=== PATIENT | male | born 1935 | race Caucasian/White ===

== ENCOUNTER 2017-01-23 20:55 | Inpatient (IN) | payer MEDICARE ==
[~2017-01-23] VITALS: Ht 193 cm; Wt 86.2 kg
[2017-01-23 21:33] LABS: BASOPHILS 0.2 % (0-2); EOSINOPHILS 0.3 % (0-7); HEMATOCRIT 39.4 % (42.0-54.0); HEMOGLOBIN 12.6 g/dL (13.5-17.5); IMMATURE GRANULOCYTES 0.2 % (0-5); LYMPHOCYTES 7.4 % (15-50); MCV 90.6 fL (80.0-100.0); MEAN PLATELET VOLUME 9.6 fL (7.4-10.4); MONOCYTES 9.2 % (2-11); NEUTROPHILS 82.7 % (40-80); PLATELET COUNT 300 10x3/uL (130-400); RBC 4.35 10x6/uL (4.20-6.10); RDW 13.1 % (11.5-14.5)
[2017-01-23 21:44] LABS: POTASSIUM - SERUM 4.4 mmol/L (3.5-5.1)
[2017-01-23 21:58] LABS: ALBUMIN 2.5 g/dL (3.4-5.0); ANION GAP 13.3 mmol/L (8-16); BILIRUBIN - TOTAL 0.83 mg/dL (0.2-1.3); CALCIUM 10.7 mg/dL (8.5-10.1); CARBON DIOXIDE 27.1 mmol/L (21.0-32.0); CREATININE - SERUM 1.3 mg/dL (0.6-1.3); PROTEIN - SERUM 7.5 g/dL (6.4-8.2)
[2017-01-23 22:26] LABS: APPEARANCE CLEAR (CLEAR); COLOR YELLOW (YELLOW); SPECIFIC GRAVITY 1.015 (1.005-1.020)
[2017-01-23 22:27] LABS: BACTERIA MODERATE /hpf (NONE SEEN); BILIRUBIN NEGATIVE (NEGATIVE); EPITHELIAL CELLS 0-5 /hpf (0-5); GLUCOSE NEGATIVE (NEGATIVE); KETONE NEGATIVE (NEGATIVE); NITRITE NEGATIVE (NEGATIVE); PROTEIN NEGATIVE (NEGATIVE); UROBILINOGEN NORMAL (NORMAL)
[2017-01-24 00:33] VITALS: BMI 23.1
[2017-01-24 00:49] VITALS: BP 99/62
[2017-01-24 05:33] VITALS: BP 92/59
--- NOTE | 2017-01-24 07:30 | NUR ---
REPORT RECEIVED. RR EVEN AND UNLABORED. PT DENIES NEEDS AT THIS TIME. FLUIDS RUNNING AT 50ML/HR, NO ORDERS FOR FLUIDS, CHANGED TO KVO AT 10MLS/HR FOR INTERMITTENT ABX. WILL CTM.
[2017-01-24 08:52] VITALS: BP 113/53
--- NOTE | 2017-01-24 11:00 | NUR ---
PT C/O OF ACID REFLUX. REPORTS THAT HE TAKES TUMS AT HOME. LEFT CINDY FROM DR. CHO'S OFFICE A MESSAGE. WILL AWAIT CALL BACK.
--- NOTE | 2017-01-24 12:15 | NUR ---
PT STILL VERY AGITATED THAT HE HAS NOT GOT HIS TUMS. I HAVE NOT RECEIVED A CALL BACK. WILL CALL OFFICE AGAIN.
--- NOTE | 2017-01-24 12:20 | NUR ---
SPOKE TO DR. JASSO REGARDING PT REQUEST FOR TUMS. GAVE TELEPHONE ORDER FOR TUMS TIDPRN 1000MG. WILL GIVE AND CTM.
[2017-01-24 12:39] VITALS: BP 117/71
[2017-01-24 13:39] VITALS: BMI 23.1
[2017-01-24 14:22] VITALS: Ht 193 cm; Wt 86.2 kg
[2017-01-24] MEDS ORDERED: MIRALAX17 GM PO (14:30)
[2017-01-24] MEDS ORDERED: VIBRAMYCIN 100100 MG PO (14:30)
--- NOTE | 2017-01-24 14:55 | NUR ---
SCDS ORDERED FOR PT. PT REFUSED SCDS AT THIS TIME.
--- NOTE | 2017-01-24 15:45 | NUR ---
SPOKE TO PTS FAMILY ABOUT PT BEING DISCHARGED. VERBALIZED UNDERSTANDING. REPORTED THEY WILL BE HERE TO [employer] FAMILY MEMBER IN A "LITTLE WHILE."
--- NOTE | 2017-01-24 16:06 | NUR ---
Patient Name: GOPAL LYNN Admission Status: ER Accout number: [id number] Admission Date: 01-23-2017 : 1935 Admission Diagnosis: Attending: SAE CHO Current LOS: 1 Anticipated DC Date: 01-24-2017 Planned Disposition: Home with Home Health Primary Insurance: MEDICARE A & B PLANNED EXTERNAL PROVIDER: [facility] Discharge Planning Comments: * Is the patient Alert and Oriented? Yes 0 * How many steps to enter\exit or inside your home? 3-4 0 * PCP DR. CHO 0 * Pharmacy [facility] 0 * Preadmission Environment Home with Family 0 * ADLs Independent 0 * Equipment Wheelchair 0 * Other Equipment NO MEDICAL EQUIPMENT PROVIDER PREFERENCE 0 * List name and contact numbers for known caregivers / representatives who currently or will assist patient after discharge: INA LYNN, SPOUSE, 0 * Community resources currently utilized None 0 * Please name any agencies selected above. NONE 0 * Additional services required to return to the preadmission environment? No 0 * Can the patient safely return to the preadmission environment? Yes 0 * Has this patient been hospitalized within the prior 30 days at any hospital? No 0 CM MET WITH PT IN ROOM TO DISCUSS DISCHARGE PLANNING AND NEEDS. PT REPORTS LIVING AT HOME INDEPENDENTLY WITH SPOUSE. PT HAS MANUAL WHEELCHAIR AND NO MEDICAL EQUIPMENT PROVIDER PREFERENCE. PT HAS NO OUTSIDE SERVICES ASSISTING IN THE HOME. CM DISCUSSED AVAILABILITY OF HOME HEALTH, REHAB SERVICES AND MEDICAL EQUIPMENT. PT DENIES REHAB NEEDS, REPORTS HE WILL ACCEPT HOME HEALTH, CHOSE [facility], CHOICE SIGNED; PT REPORTS HIS OR DAUGHTER WILL PICK HIM UP FOR DISCHARGE HOME TODAY. CM CALLED [facility], , SPOKE TO RAGHU WHO WILL ACCEPT PT AND ADMIT ON TUESDAY. CM NOTIFIED PT WHO ACCEPTED ARRANGEMENT AND DID NOT WANT CM TO CALL ANOTHER COMPANY. CM FAXED DISCHARGE INFORMATION TO [facility] AT [phone]. Analytical Scientist: Dudley Sears
--- NOTE | 2017-01-24 16:09 | NUR ---
PT DISCHARGED. PT REQUESTED THAT I GIVE D/C INSTRUCTIONS TO HIS FAMILY MEMBER WHEN SHE ARRIVES. IV CATHETER REMOVED WITH CATHTER TIP INTACT. WILL PROVIDE TEACHING TO FAMILY WHEN THEY ARRIVE AND PT GAVE PERMISSION FOR THEM TO SIGN PAPERWORK FOR HIM. WILL AWAIT FAMILY TO ARRIVE.
[2017-01-24 16:27] VITALS: BP 113/75
--- NOTE | 2017-01-24 18:00 | NUR ---
FAMILY HERE TO GET PT. PROVIDED TEACHING, PAPERWORK SIGNED. VERBALIZED UNDERSTANDING. ASSISTED PT TO WHEELCHAIR X2 ASSIST. WENT DOWNSTAIRS WITH PT AND ASSISTED HIM TO CAR X2 ASSIST. FAMILY REPORTS THEY HAVE HELP WAITING AT HOME TO TRANSFER HIM TO HIS HOME WHEELCHAIR. DENIES FURTHER NEEDS. VERBALIZED SATISFACTION WITH CARE.
== END 2017-01-24 18:12 | disposition home health service (06) | DRG 689 ==
LOC: D.ER 20:55 → D.M2 21:38
PROVIDERS: Emergency Medicine; ADMIT Family Medicine
DX: N39.0 Urinary tract infection, site not specified (principal); J18.9 Pneumonia, unspecified organism; K59.00 Constipation, unspecified; F32.9 Major depressive disorder, single episode, unspecified; K21.9 Gastro-esophageal reflux disease without esophagitis; G62.9 Polyneuropathy, unspecified; R63.0 Anorexia

== ENCOUNTER 2017-01-26 09:32 | Inpatient (IN) | payer MEDICARE ==
[~2017-01-26] VITALS: Ht 193 cm; Wt 63.5 kg
[~2017-01-26 09:32] MED LIST: MIRALAX17 GM PO; VIBRAMYCIN 100100 MG PO
[2017-01-26 10:25] LABS: BASOPHILS 0.1 % (0-2); EOSINOPHILS 0 % (0-7); HEMATOCRIT 39.6 % (42.0-54.0); HEMOGLOBIN 13.2 g/dL (13.5-17.5); IMMATURE GRANULOCYTES 0.4 % (0-5); LYMPHOCYTES 4.2 % (15-50); MCH 29.6 pg (26.0-34.0); MCHC 33.3 g/dL (31.0-37.0); MCV 88.8 fL (80.0-100.0); MONOCYTES 5.5 % (2-11); NEUTROPHILS 89.8 % (40-80); RBC 4.46 10x6/uL (4.20-6.10); RDW 13.2 % (11.5-14.5); WBC 19.4 10x3/uL (4.8-10.8)
[2017-01-26 10:30] LABS: PLATELET COUNT 382 10x3/uL (130-400)
[2017-01-26 10:43] LABS: ALBUMIN 2.4 g/dL (3.4-5.0); ALKALINE PHOSPHATASE 86 U/L (46-116); ALT (SGPT) 14 U/L (10-68); CALC OSMOLALITY 300 mosm/kg (275-300); CARBON DIOXIDE 32.1 mmol/L (21.0-32.0); CHLORIDE - SERUM 96 mmol/L (98-107); CREATININE - SERUM 2.3 mg/dL (0.6-1.3); GLUCOSE 147 mg/dL (74-106); POTASSIUM - SERUM 4.4 mmol/L (3.5-5.1); PROTEIN - SERUM 8.4 g/dL (6.4-8.2); SODIUM 136 mmol/L (136-145); UREA NITROGEN 85 mg/dL (7-18); eGFR NON AFRICAN AMERICAN 29 mL/min (90-120)
[2017-01-26 10:50] LABS: CALCIUM 13.9 mg/dL (8.5-10.1)
[2017-01-26 10:50] LABS: APPEARANCE CLEAR (CLEAR); BACTERIA FEW /hpf (NONE SEEN); BILIRUBIN NEGATIVE (NEGATIVE); COLOR YELLOW (YELLOW); EPITHELIAL CELLS 0-5 /hpf (0-5); GLUCOSE NEGATIVE (NEGATIVE); HYALINE CAST 0-5 /lpf (NONE SEEN); KETONE NEGATIVE (NEGATIVE); MUCUS <1+ /lpf (NONE SEEN); NITRITE NEGATIVE (NEGATIVE); PROTEIN TRACE mg/dL (NEGATIVE); RED CELLS - URINE 0-5 /hpf (0-5); UROBILINOGEN NORMAL (NORMAL); WHITE CELLS - URINE 0-5 /hpf (0-5)
[2017-01-26 10:51] LABS: AMORPHOUS SEDIMENT >1+ /lpf (NONE SEEN)
[2017-01-26 11:00] LABS: CREATINE KINASE 44 UL (21-232); MAGNESIUM - SERUM 2.1 mg/dL (1.8-2.4); PHOSPHOROUS 2.4 mg/dL (2.5-4.9); TROPONIN-I < 0.017 ng/mL (0.000-0.060)
[2017-01-26 11:19] LABS: PRO BNP 2078 pg/mL (0-450)
[2017-01-26 14:21] VITALS: BP 132/93; BMI 17.0
--- NOTE | 2017-01-26 14:30 | NUR ---
ASSESSMENT PER FLOW SHEET.PT WITHOUT DISTRESS.CALL LIGHT IN REACH
--- NOTE | 2017-01-26 16:43 | NUR ---
PT SPOUSE CAME IN TO TALK ABOUT PT CONDITION, STATED PT REFUSES TO EAT AT HOME AND STATES THAT FOOD TASTES LIKE CARDBOARD, THE ONLY THING THAT PATIENT EATS IS TUMS. STATED PT BOUGHT A BOTTLE OF 90 THIS PAST WEEKEND AND HAS MAYBE 20 LEFT. PT STATED HE CAME TO ER TO HAVE TUBE PLACED IN HIM TO RECIEVE NUTRIENTS BECAUSE HE DID NOT WANT TO EAT. PT FELL [place] [facility] [place] AROUND November AND THEN FELL AGAIN AT HOME A FEW WEEKS LATER AND HAS SINCE BEEN WHEELCHAIR BOUND. PT STATED HE DOES NOT HAVE PNEUMONIA AND THAT SPOT ON LUNG HAS BEEN THERE FOR YEARS AND HE JUST FORGOT TO TELL DOCTORS. PT DID NOT GO TO HOSPITAL OR SEE A DOCTOR WHEN HE FELL BOTH TIMES. PT HAS BEEN TAKING AZO AT HOME FOR URINARY INFECTION. TUESDAY PT THREW UP WHAT WAS DESCRIBED DARK BROWN COFFEE GROUNDS HAS NOT EATEN SINCE AND WILL NOT EAT. WILL CONTINUE WITH PT CARE PLAN
--- NOTE | 2017-01-26 18:20 | NUR ---
PT DAUGHTER DORCAS JUST CALLED TO GIVE UPDATE ON PT, STATED PT IS NOT TAKING TUMS LIKE MOTHER STAES AND THAT PT IS WANTING TO GET HELP AND GET BETTER BUT IS NOT GETTING THE SUPPORT FROM [facility] THAT IS NEEDED. STATED SHE WANTED TOX SCREENS RUN ON PT TO RULE OUT POISONING, ADVISED PT DAUGHTER THAT SHE NEEDS TO SPEAK WITH PT AND DOCTOR ABOUT THIS. PT STATED SHE IS BUYING ICE CREAM AND ENSURE TO PROMOTE PT EATING, ADVISED DAUGHTER I WILL PUT HER NUMBER IN NOTES IF DOCTOR HAS QUESTIONS AND ALSO THAT PT WILL NEED TO OK HER TALKING TO US ABOUT CONDITION, PT DAUGHTER DORCAS [phone]
[2017-01-26 20:00] VITALS: BP 138/86
--- NOTE | 2017-01-26 20:00 | NUR ---
ASSESSMENT PER FLOWSHEET. IV PATENT LEFT FOREARM OF NS AT 100CC'S/HR SITE CLEAR. SR UP X2 PLACED PATIENT ON A RICHAR MAT WITH ALARMS SET. CALL LIGHT WITHIN REACH. HOLLOWAY TO BEDSIDE DRAINAGE WITH MARY COLORED URINE.
--- NOTE | 2017-01-26 22:00 | NUR ---
RESTING QUIETLY TURNS SELF IN BED. DENIES NEEDS.
[2017-01-27] VITALS: BP 138/82
--- NOTE | 2017-01-27 | NUR ---
EYES CLOSED RESPIRATIONS WITH EASE AND UNLABORED. TURNS SELF AND SETS OFF RICHAR MAT. ALARMS RESET.
--- NOTE | 2017-01-27 03:00 | NUR ---
EYES CLOSED RESPIRATIONS WITH EASE AND UNLABORED.
[2017-01-27 04:00] VITALS: BP 132/88
[2017-01-27 06:16] LABS: HEMATOCRIT 32.3 % (42.0-54.0); HEMOGLOBIN 10.8 g/dL (13.5-17.5); MCH 29.3 pg (26.0-34.0); MCHC 33.4 g/dL (31.0-37.0); MCV 87.8 fL (80.0-100.0); MEAN PLATELET VOLUME 10.4 fL (7.4-10.4); PLATELET COUNT 360 10x3/uL (130-400); RBC 3.68 10x6/uL (4.20-6.10); RDW 13.2 % (11.5-14.5); WBC 23.2 10x3/uL (4.8-10.8)
[2017-01-27 06:42] LABS: ANION GAP 14.2 mmol/L (8-16); CALCIUM 11.6 mg/dL (8.5-10.1); CARBON DIOXIDE 26.9 mmol/L (21.0-32.0); CREATININE - SERUM 1.9 mg/dL (0.6-1.3); POTASSIUM - SERUM 4.1 mmol/L (3.5-5.1)
[2017-01-27 07:06] LABS: EOSINOPHILS 1 % (0-7); LYMPHOCYTES 5 % (15-50); MONOCYTES 7 % (2-11); NEUTROPHILS 84 % (40-80); PLATELET ESTIMATE NORMAL; ROULEAUX OCC
[2017-01-27 07:58] VITALS: BP 128/91
--- NOTE | 2017-01-27 10:04 | NUR ---
Patient Name: GOPAL LYNN Admission Status: ER Accout number: [id number] Admission Date: 01-26-2017 : 1935 Admission Diagnosis: Attending: SAE CHO Current LOS: 1 Anticipated DC Date: 02-01-2017 Planned Disposition: Home with Home Health Primary Insurance: MEDICARE A & B Discharge Planning Comments: CM MET WITH PATIENT AND CALLED (INA)REGARDING D/C NEEDS AND PLANS. STATED SHE WILL DRIVE PATIENT HOME AT DISCHARGE. PATIENT HAD PREVIOUSLY FELL TWICE BEFORE THIS VISIT AND REFUSES TO GET UP AT HOME SINCE PER . PATIENT NEEDS HELP TRANSFERRING, BATHING (REFUSING AT HOME), AND MEDS. PATIENT HAS A CANE, WHEELCHAIR, SHOWER CHAIR, BS COMMODE, AND WALKER AT HOME PER . PATIENTS DAUGHTER WITH HER CHILDREN HAS MOVED IN TO HELP WITH HIS NEEDS. PATIENTS STATED HE IS REFUSING TO DO ANYTHING. PATIENTS PCP IS DR. CHO AND USES [facility]. PATIENT HAD SIGNED WITH [facility] AT LAST VISIT AND THEY STATED THEY WOULD SEE PATIENT ONCE HE IS HOME. CM WILL CONTINUE TO FOLLOW PATIENT WITH D/C NEEDS AND PLANS. PCP DR. CHO [facility] [phone] INA () [phone] Line Assembler: Suni Saxena Is the patient Alert and Oriented? Yes 0 * How many steps to enter\exit or inside your home? RAMP 0 * PCP DR. CHO 0 * Pharmacy [facility] 0 * Preadmission Environment Home with Family 0 * ADLs Partial Dependent 0 * Partial ADLs (Assistance needed) Ambulation Bathing Dressing Medication Management Toileting Transfers 0 * Equipment Bedside Commode Cane Shower Chair Walker Wheelchair 0 * List name and contact numbers for known caregivers / representatives who currently or will assist patient after discharge: INA () [phone] * Community resources currently utilized Home Health 0 * Please name any agencies selected above. [facility] WILL SEE HIM AT DISCHARGE 0 * Additional services required to return to the preadmission environment? Yes 0 * Can the patient safely return to the preadmission environment? Yes 0 * Has this patient been hospitalized within the prior 30 days at any hospital? Yes 0 Grand Total: 0
[2017-01-27 12:11] VITALS: BP 122/70
[2017-01-27 12:35] VITALS: BMI 17.0
--- NOTE | 2017-01-27 13:00 | NUR ---
ATTEMPTED TO GET PT UP TO CHAIR WITH TWO PERSON ASSIST. UNABLE TO SAFELY TRANSFER PT. WILL LET PHYSICAL THERAPY WORK WITH PT.
[2017-01-27 13:43] LABS: BASOPHILS 0.1 % (0-2); EOSINOPHILS 0 % (0-7); HEMOGLOBIN 10.7 g/dL (13.5-17.5); IMMATURE GRANULOCYTES 0.4 % (0-5); LYMPHOCYTES 1.9 % (15-50); MCH 29.3 pg (26.0-34.0); MCHC 32.4 g/dL (31.0-37.0); MCV 90.4 fL (80.0-100.0); MEAN PLATELET VOLUME 10.1 fL (7.4-10.4); MONOCYTES 4.9 % (2-11); NEUTROPHILS 92.7 % (40-80); PLATELET COUNT 356 10x3/uL (130-400); RBC 3.65 10x6/uL (4.20-6.10); RDW 13.5 % (11.5-14.5); WBC 27.1 10x3/uL (4.8-10.8)
[2017-01-27 15:42] VITALS: BP 147/99
--- NOTE | 2017-01-27 17:17 | NUR ---
SCHEDULED MEDICATIONS ADMINISTERED AT THIS TIME WITHOUT DIFFICULTY. RICHAR MAT ALARM ON AND IN USE. CALL LIGHT IN REACH AND DOOR OPEN. WILL CONTINUE WITH PLAN OF CARE.
--- NOTE | 2017-01-27 20:45 | NUR ---
PT REQUEST TO BE REPOSITIONED, ROSE BUCKLEY HELPED READJUST, PT DENIES OTHER NEEDS, CALL LIGHT IN REACH, WILL CONITNUE TO MONITOR
[2017-01-28 04:00] VITALS: BP 142/80
--- NOTE | 2017-01-28 04:30 | NUR ---
PT LYING IN BED AWAKE. PT JUST RECEIVED PAIN PILL FROM BATH HOUSE ATTENDANT. NO OTHER NEEDS. CONTINUE BATH HOUSE ATTENDANT'S PLAN OF CARE.
[2017-01-28 05:39] LABS: BASOPHILS 0 % (0-2); EOSINOPHILS 0 % (0-7); HEMATOCRIT 27.3 % (42.0-54.0); IMMATURE GRANULOCYTES 0.4 % (0-5); LYMPHOCYTES 2.3 % (15-50); MCH 29.1 pg (26.0-34.0); MCV 88.3 fL (80.0-100.0); MEAN PLATELET VOLUME 9.5 fL (7.4-10.4); MONOCYTES 5.6 % (2-11); NEUTROPHILS 91.7 % (40-80); PLATELET COUNT 331 10x3/uL (130-400); RBC 3.09 10x6/uL (4.20-6.10); RDW 13.3 % (11.5-14.5); WBC 25.9 10x3/uL (4.8-10.8)
[2017-01-28 05:56] LABS: % SATURATION 76 % (15-55); IRON 125 ug/dl (35-150); TOTAL IRON BIND CAPACITY 164 ug/dl (260-445)
[2017-01-28 05:57] LABS: UNSAT IRON BIND CAPACITY 39 ug/dl (150-375)
[2017-01-28 06:38] LABS: ANION GAP 13.7 mmol/L (8-16); CALCIUM 11.1 mg/dL (8.5-10.1); CARBON DIOXIDE 26.1 mmol/L (21.0-32.0); CREATININE - SERUM 1.7 mg/dL (0.6-1.3); PHOSPHOROUS 1.8 mg/dL (2.5-4.9); POTASSIUM - SERUM 3.8 mmol/L (3.5-5.1); PRE-ALBUMIN 14.3 mg/dL (18.0-35.7)
--- NOTE | 2017-01-28 08:00 | NUR ---
ASSESSMENT PER FLOW SHEET.PT WITHOUT DISTRESS.DENIES NEEDS AT PRESENT.PT VERY RELUCTANT TO TALK,FLAT AFFECT.FALL PREVENTION IN PLACE WITH RICHAR MAT IN PLACE AND MONITORING.
[2017-01-28 08:10] VITALS: BP 144/91
[2017-01-28 11:44] VITALS: Ht 193 cm; Wt 63.5 kg
--- NOTE | 2017-01-28 11:45 | NUR ---
WANTING UP IN CHAIR,PAGE TO PT.
--- NOTE | 2017-01-28 12:00 | NUR ---
PT SLID OUT OF BED WITHOUT INJURY.PT ASSISTED WITH GETTING PT BACK TO BED. I ASK PT WHY HE HAD TRIED TO GET UP HIMSELF,BUT HE WILL NOT ANSWER. HE IS ANGRY AND STATED EARLIER HE WAS READY TO GO HOME.
--- NOTE | 2017-01-28 12:22 | NUR ---
CALL TO [facility] EMERGENCY CONTACT.MESSAGE LEFT FOR HER TO CALL.
--- NOTE | 2017-01-28 12:32 | NUR ---
CALL TO TO INFORM HIM PT SLID OUT OF BED. VSS 97.9,76,20,131/74.
[2017-01-28 12:53] VITALS: BP 122/84
--- NOTE | 2017-01-28 13:00 | NUR ---
NUTRITION F/U PT WITH GOOD PO INTAKE BREAKFAST. LUNCH TRAY AT BEDSIDE BUT PT NOT EATING. VISIT WITH PT YESTERDAY, ADDED ENSURE TO MEALS. PT HAS BEEN CONSUMING MOST OF ENSURE. WILL CONTINUE TO SUPPLY ENSURE, ENCOURAGE PO INTAKE. RD FOLLOWING
--- NOTE | 2017-01-28 13:47 | NUR ---
BACK FROM XRAY VIA BED.PT WITHOUT DISTRESS,BUT REQUESTING PAIN MEDS
--- NOTE | 2017-01-28 14:53 | NUR ---
RESTING WITHOUT SIGNS OF DISTRESS
[2017-01-28 15:50] VITALS: BP 122/74
[2017-01-28 20:00] VITALS: BP 121/80
[2017-01-29] VITALS: BP 135/90
--- NOTE | 2017-01-29 00:46 | NUR ---
PATIENT PULLED PIV OUT WITH CATH INTACT. NEW 20G PIV STARTED IN LEFT FOREARM. BED BATH GIVEN WITH [employer] EXECUTIVE DIRECTOR.
--- NOTE | 2017-01-29 03:00 | NUR ---
PT RESTING QUIETLY, EYES CLOSED. RESP EVEN, UNLABORD. NO DISTRESS NOTED. CONTINUE RN OTOLARYNGOLOGY'S PLAN OF CARE.
[2017-01-29 04:00] VITALS: BP 113/71
[2017-01-29 05:40] LABS: BASOPHILS 0 % (0-2); EOSINOPHILS 0 % (0-7); HEMATOCRIT 24.6 % (42.0-54.0); HEMOGLOBIN 7.9 g/dL (13.5-17.5); IMMATURE GRANULOCYTES 0.6 % (0-5); LYMPHOCYTES 2.9 % (15-50); MCH 28.7 pg (26.0-34.0); MCHC 32.1 g/dL (31.0-37.0); MCV 89.5 fL (80.0-100.0); MEAN PLATELET VOLUME 9.4 fL (7.4-10.4); NEUTROPHILS 88.5 % (40-80); PLATELET COUNT 267 10x3/uL (130-400); RBC 2.75 10x6/uL (4.20-6.10); RDW 13.6 % (11.5-14.5); WBC 24.7 10x3/uL (4.8-10.8)
[2017-01-29 05:55] LABS: ALBUMIN 1.8 g/dL (3.4-5.0); ANION GAP 9.2 mmol/L (8-16); BILIRUBIN - TOTAL 0.4 mg/dL (0.2-1.3); CALCIUM 10.1 mg/dL (8.5-10.1); CARBON DIOXIDE 25.5 mmol/L (21.0-32.0); CREATININE - SERUM 1.4 mg/dL (0.6-1.3); POTASSIUM - SERUM 3.7 mmol/L (3.5-5.1); PROTEIN - SERUM 5.1 g/dL (6.4-8.2)
[2017-01-29 07:22] LABS: IMMUNOGLOBULIN E 54 IU/mL (0-100)
--- NOTE | 2017-01-29 08:00 | NUR ---
ASSESSMENT PER FLOW SHEET.PT WITHOUT DISTRESS. PT HAS VERY FLAT AFFECT AND IS NOT SPEAKING MUCH.MONITOR FOR NEEDS.FALL PREVENTION IN PROGRESS.
--- NOTE | 2017-01-29 10:30 | NUR ---
PT REFUSING TO EAT.HE ALSO STATES HE WISHES TO BE DNR. HE HAS DECLINED BREAKFAST THIS AM.MONITOR
[2017-01-29 10:52] VITALS: BP 113/67
--- NOTE | 2017-01-29 12:00 | NUR ---
REFUSES PT TODAY.REMAINS WITHOUT NEEDS
[2017-01-29 12:53] VITALS: BP 117/76
--- NOTE | 2017-01-29 18:20 | NUR ---
WITHOUT CHANGE.CONT PLAN OF CARE
[2017-01-29 20:00] VITALS: BP 125/53
[2017-01-30] VITALS: BP 133/64
--- NOTE | 2017-01-30 02:19 | NUR ---
RN NOTE: PT RESTING QUIETLY IN SUPINE POSITION WITH EASY RESPIRATIONS. IV IN LEFT FA PATENT WITH NS INFUSING AT 100 ML/HR. 24 HOUR URINE COLLECTION IN PROGRESS. GAVE PT ICE CHIPS AND WATER PER REQUEST. WILL CONTINUE TO MONITOR FOR NEEDS. CALL LIGHT WITHIN REACH.
[2017-01-30 04:00] VITALS: BP 131/65
[2017-01-30 06:21] LABS: BASOPHILS 0.1 % (0-2); EOSINOPHILS 0.2 % (0-7); HEMATOCRIT 22.3 % (42.0-54.0); IMMATURE GRANULOCYTES 0.9 % (0-5); LYMPHOCYTES 4.4 % (15-50); MCH 28.7 pg (26.0-34.0); MCHC 31.8 g/dL (31.0-37.0); MCV 90.3 fL (80.0-100.0); MEAN PLATELET VOLUME 9.4 fL (7.4-10.4); MONOCYTES 7.4 % (2-11); PLATELET COUNT 236 10x3/uL (130-400); RBC 2.47 10x6/uL (4.20-6.10)
[2017-01-30 06:39] LABS: HEMOGLOBIN 7.1 g/dL (13.5-17.5); WBC 16.9 10x3/uL (4.8-10.8)
[2017-01-30 06:42] LABS: ALBUMIN 1.6 g/dL (3.4-5.0); ANION GAP 9.7 mmol/L (8-16); BILIRUBIN - TOTAL 0.4 mg/dL (0.2-1.3); CALCIUM 9.8 mg/dL (8.5-10.1); CARBON DIOXIDE 22.9 mmol/L (21.0-32.0); CREATININE - SERUM 1.3 mg/dL (0.6-1.3); POTASSIUM - SERUM 3.6 mmol/L (3.5-5.1); PROTEIN - SERUM 4.7 g/dL (6.4-8.2)
--- NOTE | 2017-01-30 06:47 | NUR ---
DR ENGLISH HARLEY FOR CRITICAL LOW HGB
--- NOTE | 2017-01-30 07:03 | NUR ---
DR JASSO NOTIFIED OF H&H, IS NOT TREATING BECAUSE THE PATIENT DID NOT WANT TREATMENT
--- NOTE | 2017-01-30 08:00 | NUR ---
ASSESSMENT PER FLOW SHEET.PT WITHOUT DISTRESS.CALL LIGHT IN REACH.FALL PREVENTION IN PLACE
[2017-01-30 11:04] VITALS: BP 96/52
[2017-01-30 12:09] LABS: INR 1.32 (0.85-1.17); PROTIME 15.9 SECONDS (11.6-15.0)
[2017-01-30 13:32] VITALS: BP 121/65
--- NOTE | 2017-01-30 18:58 | NUR ---
REMAINS WITHOUT NEEDS,WITHOUT DISTRESS.CONT PLAN OF CARE
[2017-01-30 19:07] LABS: IMMUNOGLOBULIN A 470 mg/dL (61-437); IMMUNOGLOBULIN G 1267 mg/dL (700-1600)
[2017-01-30 20:00] VITALS: BP 112/65
--- NOTE | 2017-01-30 20:33 | NUR ---
PATIENT SIGNED HIS PROCEDURE NOTES. THEN ABOUT 15 MINUTES LATER STATED HE DIDN'T WANT IT, HE JUST WANTED TO .
--- NOTE | 2017-01-31 03:17 | NUR ---
PT RESTING QUIETLY, EYES CLOSED. RESP EVEN, UNLABORED. NO DISTRESS NOTED. CONTINUE ASSISTANT PURCHASING MANAGER'S PLAN OF CARE.
[2017-01-31 04:00] VITALS: BP 126/63
--- NOTE | 2017-01-31 07:20 | NUR ---
REPORT RECEIVED FROM SOCK LINING EXAMINER NURSE. CALL LIGHT IN REACH.
[2017-01-31 08:02] LABS: BASOPHILS 0.1 % (0-2); EOSINOPHILS 0.9 % (0-7); IMMATURE GRANULOCYTES 1.4 % (0-5); LYMPHOCYTES 7.1 % (15-50); MCH 29.4 pg (26.0-34.0); MCHC 32.8 g/dL (31.0-37.0); MCV 89.6 fL (80.0-100.0); MEAN PLATELET VOLUME 8.6 fL (7.4-10.4); MONOCYTES 8.5 % (2-11); PLATELET COUNT 199 10x3/uL (130-400); RBC 2.21 10x6/uL (4.20-6.10); RDW 14.4 % (11.5-14.5)
[2017-01-31 08:07] LABS: WBC 12.1 10x3/uL (4.8-10.8)
[2017-01-31 08:10] LABS: HEMATOCRIT 19.8 % (42.0-54.0); HEMOGLOBIN 6.5 g/dL (13.5-17.5)
[2017-01-31 08:13] LABS: INR 1.38 (0.85-1.17); PROTIME 16.5 SECONDS (11.6-15.0)
[2017-01-31 08:15] LABS: ANION GAP 10.4 mmol/L (8-16); CALCIUM 9.3 mg/dL (8.5-10.1); CARBON DIOXIDE 22.1 mmol/L (21.0-32.0); CREATININE - SERUM 1.3 mg/dL (0.6-1.3); POTASSIUM - SERUM 3.5 mmol/L (3.5-5.1)
[2017-01-31 09:33] VITALS: BP 122/59
--- NOTE | 2017-01-31 09:45 | NUR ---
ASSESSMENT COMPLETED. AM MEDS ADMINISTERED. CALL LIGHT IN REACH. WILL CONTINUE WITH PLAN OF CARE.
--- NOTE | 2017-01-31 10:58 | NUR ---
IV FLUIDS CHANGED PER ORDER. CARAFATE AND SHARLAJEN PO. CALL LIGHT IN REACH.
[2017-01-31 11:12] LABS: ANA REFLEX - ANTICHROMATIN ABS <0.2 AI (0.0-0.9); ANA REFLEX - CENTROMERE B ABS <0.2 AI (0.0-0.9); ANA REFLEX - DBL STRANDED DNA 1 IU/mL (0-9); ANA REFLEX - DIRECT Positive (Negative); ANA REFLEX - JO-1 AB <0.2 AI (0.0-0.9); ANA REFLEX - RNP ANTIBODIES 2.3 AI (0.0-0.9); ANA REFLEX - SCL-70 0.9 AI (0.0-0.9); ANA REFLEX - SJOGRENS AB SSA <0.2 AI (0.0-0.9); ANA REFLEX - SJOGRENS AB SSB <0.2 AI (0.0-0.9); ANA REFLEX - SMITH AB <0.2 AI (0.0-0.9)
--- NOTE | 2017-01-31 12:20 | NUR ---
NO NEEDS VOICED AT THIS TIME. CALL LIGHT IN REACH.
[2017-01-31 13:03] VITALS: BP 111/57
--- NOTE | 2017-01-31 13:24 | NUR ---
PT HERE FOR PNEUMONIA FOR THIS VISIT PT DENIES NEEDS AT THIS TIME WILL CONTINUE TO MONITOR
--- NOTE | 2017-01-31 14:20 | NUR ---
CEFEMPIME SIVP PER ORDER.
[2017-01-31 15:20] LABS: ANGIOTENSIN CONVERTING ENZYME 22 U/L (14-82)
[2017-01-31 16:32] VITALS: BP 133/60
--- NOTE | 2017-01-31 16:40 | NUR ---
REFUSED CARAFATE. LINENS CHANGED PER CNAs.
--- NOTE | 2017-01-31 17:30 | NUR ---
1400 ORDER RECEIVED FOR CONSULT WITH [facility]. THE WANTED THE HOSPICE PROVIDER WITH DR BENÍTEZ, WHICH IS [facility]. THE WANTS HOSPICE CARE IN THE HOME. SASKIA CALLED [facility] AND SPOKE WITH SOFTWARE PRODUCT SPECIALIST . REFERRAL PACKET PREPARED AND FAXED TO [place] OFFICE. CHAY ZAVALA CAME ON SITE TO EVALUATE FOR HOSPICE EVALUATION WAS COMPLETED. THE WANTED THE PATIENT DISCHARGED TO HOME TONIGHT. HOSPICE WILL ARRANGE FOR DELIVERY OF EQUIPMENT TONIGHT. TC TO DR CHO TO OBTAIN THE DISCHARGE ORDERS. SASKIA SPOKE WITH THE PRIMARY NURSE, FITO. 1715 DR PARISH CALLED BACK. HE WILL DISCHARGE THE PATIENT TONIGHT.
--- NOTE | 2017-01-31 17:31 | NUR ---
PATIENT'S WILL PROVIDE TRANSPORTATION. THE NURSE IS TO CALL WHEN THE PATIENT IS READY. SHE CANNOT COME UP TO THE UNIT BUT WILL WAIT IN THE CAR AND TRANSPORT HIM HOME. SHE IS TO CALL [facility] WHEN THEY ARRIVE HOME.
--- NOTE | 2017-01-31 18:50 | NUR ---
DISCHARGE IS COMPLETED.
--- NOTE | 2017-01-31 20:06 | NUR ---
WAITING ON TO PICK PATIENT UP.
--- NOTE | 2017-01-31 20:24 | NUR ---
DC'D TO VEHICLE VIA WC WITH .
[2017-02-01 12:15] LABS: SPE - A/G RATIO 0.7 (0.7-1.7); SPE - ALBUMIN 2.2 g/dL (2.9-4.4); SPE - ALPHA-1 GLOBULIN 0.3 g/dL (0.0-0.4); SPE - ALPHA-2 GLOBULIN 0.6 g/dL (0.4-1.0); SPE - BETA GLOBULIN 0.8 g/dL (0.7-1.3); SPE - GAMMA GLOBULIN 1.3 g/dL (0.4-1.8); SPE - M-SPIKE Not Observed g/dL (Not Observed); SPE - TOTAL PROTEIN 5.2 g/dL (6.0-8.5)
[2017-02-01 14:20] LABS: IMMUNOFIXATION Note: (()); IMMUNOGLOBULIN A 433 mg/dL (61-437); IMMUNOGLOBULIN G 1135 mg/dL (700-1600); IMMUNOGLOBULIN M 68 mg/dL (15-143)
[2017-02-02 14:22] LABS: UPE - ALPHA 1 GLOBULIN 6.3 % (NOT ESTAB.); UPE - ALPHA 2 GLOBULIN 21.7 % (NOT ESTAB.); UPE - BETA GLOBULIN 29.3 % (NOT ESTAB.); UPE - GAMMA GLOBULIN 27.7 % (NOT ESTAB.)
== END 2017-01-31 20:24 | disposition home health service (06) | DRG 682 ==
LOC: D.ER 09:32 → D.MS 12:03
PROVIDERS: Emergency Medicine; Internal Medicine; Internal Medicine Pulmonary Disease; Nurse Practitioner Family; Radiology Diagnostic Radiology; ADMIT Family Medicine
PROC: 0T9B70Z Drainage of Bladder with Drainage Device, Via Natural or Artificial Opening (ICD-10-PCS; principal; 2017-01-26)
DX: N17.9 Acute kidney failure, unspecified (principal); J18.9 Pneumonia, unspecified organism; Z68.1 Body mass index [BMI] 19.9 or less, adult; K57.92 Diverticulitis of intestine, part unspecified, without perforation or abscess without bleeding; C64.9 Malignant neoplasm of unspecified kidney, except renal pelvis; C90.00 Multiple myeloma not having achieved remission; R53.1 Weakness; F32.9 Major depressive disorder, single episode, unspecified; E83.52 Hypercalcemia; R62.7 Adult failure to thrive; R10.13 Epigastric pain; J84.10 Pulmonary fibrosis, unspecified; R63.4 Abnormal weight loss; E83.39 Other disorders of phosphorus metabolism; J44.9 Chronic obstructive pulmonary disease, unspecified; R91.1 Solitary pulmonary nodule; W06.XXXA Fall from bed, initial encounter; Y92.230 Patient room in hospital as the place of occurrence of the external cause